=== PATIENT | female | born 1970 | race Caucasian/White ===

== ENCOUNTER 2017-06-11 23:17 | Emergency (ER) | payer OTHER, SELFPAY ==
[2017-06-11 23:19] VITALS: BP 127/73; PULSE 94; RESP 24; TEMP 36.4; O2SAT 99; BMI 28.7
--- NOTE | 2017-06-11 23:31 | CT_ITS ---
STUDY: CT BRAIN WITHOUT CONTRAST REASON FOR EXAM: Female, 47 years old. Status post fall on ice hit head loss of consciousness RADIATION DOSAGE (If Supplied By Facility): CTDIvol = ( 44.99 ) mGy, DLP = ( 779.24 ) mGycm TECHNIQUE: Transaxial CT imaging of the brain was performed without administration of intravenous contrast material. Individualized dose optimization techniques were used for this CT. COMPARISON: None. FINDINGS: There is posterior parietal soft tissue swelling measuring up to 4.5 x 1.2 cm. There is no visualized evidence of an acute fracture. Normal calvarium. There is a punctate calcification in the right posterior parietal lobe. Normal size ventricles and extra-axial spaces for the patient's age. Normal white matter tracts of the cerebral hemispheres. Normal basal ganglia and thalami. Normal brainstem. Normal cerebellum. There is no intracranial hemorrhage. There are no findings of an acute ischemic infarction. Normal visualized paranasal sinuses. CT/Brain/Head without Contrast IMPRESSION: Posterior parietal soft tissue swelling no visualized evidence of underlying acute fracture or hemorrhage. Electronically Signed: Valery Gee MD at 0:39 EDT Tel , Service support ,
--- NOTE | 2017-06-11 23:35 | ED.DCSUM_ITS ---
- ER Visit Summary Date of Service: 06/11/17 Chief Complaint: Head trauma History of Present Illness: The patient is a 47 F who presents with head trauma after slipping on ice on concrete. Patient slipped and fell, striking the back of her head on concrete. She had a brief loss of consciousness. Patient was then able to get up and remembered before and after the event. No difficulty ambulating. No vision changes, dizziness, nausea or vomiting. No numbness or tingling in the arms or legs. Patient took Advil and applied ice to the area. Fall occurred about 45 minutes prior to presentation. Patient denies any neck, back pain or any other complaints. She is not on blood thinners. No medical history, including osteoporosis or osteopenia. Physical Examination: Vital signs: afebrile, hemodynamically stable, no hypoxia on room air General: well nourished, well developed, in no distress Skin: warm, dry, no rash, no pallor HEENT: normocephalic, tenderness and swelling to the midline parietal occipital region; right pupil reactive, left eye with clouded cornea, EOMI, moist mucous membranes neck is supple with no midline tenderness, full active range of motion Cardiovascular: regular rate and rhythm without murmurs, no peripheral edema, 2 + pulses all distal extremities Respiratory: No increased work of breathing, lungs are clear to auscultation bilaterally, no rales, rhonchi or wheezing Abdominal: Abdomen is soft, nontender with normoactive bowel sounds, no guarding or rebound, no masses Back: No midline tenderness deformities or step-offs MSK: Moves all extremities, no deformities, normal strength Neuro: Awake and alert, oriented ?4. No facial droop, sensation and motor function intact and symmetric Test Results: [] Emergency Department Course and Treatment: Given patient's mechanism of injury hitting her head on a concrete surface with brief loss of consciousness, we discussed the risks and benefits of a CT scan. For reassurance, a CT scan was performed that showed no intracranial hemorrhage or skull fracture. There was noted soft tissue swelling in the area of trauma. Patient had no symptoms while in the emergency department. She was offered and declined pain medication. We discussed return precautions. She will use ice and ibuprofen at home as needed for pain. She was discharged home. Treatment Plan: [] Disposition: [] Impression: Closed head injury, scalp hematoma This note was generated with Dragon dictation software. It may contain incorrect words, spelling, and punctuation that were not noted in review of the chart prior to signing ED Disposition - Plan for ED Patient: Chief Complaint: Head Injury Referrals: Raúl Brewster MD [Primary Care Provider] -
--- NOTE | 2017-06-12 01:06 | DCINST.ED_ITS ---
ED Disposition - Plan for ED Patient: Disposition: Home or Assisted Living Chief Complaint: Head Injury Instructions: ED Contusion Scalp, ED Head Injury Closed Referrals: Raúl Brewster MD [Primary Care Provider] - 3-5 Days if not improving Additional Instructions: Please continue to use ice and ibuprofen as needed for pain and swelling. If you develop any concerning symptoms such as passing out, vomiting multiple times , vision changes, severe headache beyond what you would expect from having hit your head, trouble speaking or walking, or any other concerns, please return immediately to the emergency department for another evaluation.
[2017-06-12 01:18] VITALS: BP 112/78; PULSE 81; RESP 18; O2SAT 97
== END 2017-06-12 01:20 | disposition home or self-care (01) ==
PROVIDERS: Emergency Provider Emergency Medicine; Family Provider Family Medicine; PCP Family Medicine
DX: S06.9X1A Unspecified intracranial injury with loss of consciousness of 30 minutes or less, initial encounter (principal); S00.03XA Contusion of scalp, initial encounter; W00.0XXA Fall on same level due to ice and snow, initial encounter; Y93.01 Activity, walking, marching and hiking; Y92.89 Other specified places as the place of occurrence of the external cause; Y99.8 Other external cause status
CPT/HCPCS: 70450; 99282